=== PATIENT | female | born 1985 | race Asian ===

== ENCOUNTER 2021-01-22 07:46 | Outpatient (CLI) | payer BC ==
[2021-01-22 10:41] LABS: #Basophils 0.1 thou/uL (0.0-0.2); #Eosinphils 0.4 thou/uL (0.0-0.7); #Lymphocytes 2.1 thou/uL (1.20-3.40); #Monocytes 0.4 thou/uL (0.11-0.59); #Neutrophils 7.1 thou/uL (1.40-6.50); %Basophils 0.7 % (0.0-1.0); %Eosinophils 3.6 % (0.0-10.0); %Lymphocytes 20.9 % (21.0-51.0); %Neutrophils 70.7 % (42.0-75.0); Hemoglobin 13.8 g/dL (12.0-16.0); Mean Corpuscular HGB CONC 33.3 g/dL (32.0-36.0); Mean Corpuscular Hemoglobin 29.6 pg (27.0-31.0); Mean Corpuscular Volume 88.8 fL (78.0-98.0); Mean Platelet Volume 9.3 fL (7.4-10.4); Platelet Count 292 thou/uL (130-400); RBC Distribution Width 11.2 % (11.5-14.5); Red Blood Cell (RBC) Count 4.67 mill/uL (4.20-5.40)
[2021-01-22 10:57] LABS: Hemoglobin A1c 5.2 % (4.0-6.0)
[2021-01-22 11:52] LABS: Free T4 (Free Thyroxine) 1.05 ng/dL (0.70-1.48); Thyroid Stimulating Hormone 1.7369 uIU/mL (0.35-4.94)
[2021-01-22 12:19] LABS: ALT (SGPT) 19 U/L (8-55); AST (SGOT) 17 U/L (5-34); Albumin 4.6 g/dL (3.5-5.0); Alkaline Phosphatase 46 U/L (40-110); Anion Gap 12 mmol/L (10-20); BUN (Urea Nitrogen) 16 mg/dL (7.0-18.7); Bilirubin, Total 0.6 mg/dL (0.2-1.2); Calc. Creatinine Clearance 0 mL/min (70-130); Calcium 9.7 mg/dL (7.8-10.44); Carbon Dioxide 26 mmol/L (22-29); Cardiac Risk 2.7 (Less than 4.5); Chloride 104 mmol/L (98-107); Cholesterol 120 mg/dl (< 200 Desired); Globulin 2.8 g/dL (2.4-3.5); Glucose 104 mg/dL (70-105); HDL Cholesterol 44 mg/dL (>60 Neg Risk); LDL Cholesterol, Calculated 60 mg/dL; Potassium 4.1 mmol/L (3.5-5.1); Protein, Total 7.4 g/dL (6.0-8.3); Sodium 138 mmol/L (136-145); Triglycerides 79 mg/dL (Less than 150)
[2021-01-22 12:38] LABS: Bilirubin Negative (Negative); Blood, Urine Negative (Negative); Glucose, Urine (Dipstick) Negative (Negative); Ketone, Urine Negative (Negative); Leukocyte Negative (Negative); Nitrite Negative (Negative); Protein, Urine (Dipstick) Negative (Neg-Trace); Urobilinogen 0.2 mg/dL (Less than 2)
[2021-01-22 13:19] LABS: Clarity Turbid (Clear); Specific Gravity, Urine 1.029 (1.002-1.036)
[2021-01-22 13:26] LABS: RBC/HPF 0-3 HPF (0-3); Squamous Epithelial 0-3 HPF (0-3); WBC/HPF 0-3 HPF (0-3)
[2021-01-24 15:29] LABS: Allergen,Beef IgE Less than 0.10 kU/L (Less than 0.10); Allergen,Chocolate/Cacao IgE Less than 0.10 kU/L (Less than 0.10); Allergen,Corn IgE Less than 0.10 kU/L (Less than 0.10); Allergen,Crab IgE Less than 0.10 kU/L (Less than 0.10); Allergen,Egg white IgE Less than 0.10 kU/L (Less than 0.10); Allergen,Egg yolk IgE Less than 0.10 kU/L (Less than 0.10); Allergen,Milk IgE Less than 0.10 kU/L (Less than 0.10); Allergen,Oat IgE Less than 0.10 kU/L (Less than 0.10); Allergen,Peanut IgE Less than 0.10 kU/L (Less than 0.10); Allergen,Pecan nut IgE Less than 0.10 kU/L (Less than 0.10); Allergen,Pork IgE Less than 0.10 kU/L (Less than 0.10); Allergen,Rice IgE Less than 0.10 kU/L (Less than 0.10); Allergen,Shrimp IgE Less than 0.10 kU/L (Less than 0.10); Allergen,Soybean IgE Less than 0.10 kU/L (Less than 0.10); Allergen,Tomato IgE Less than 0.10 kU/L (Less than 0.10); Allergen,Wheat IgE Less than 0.10 kU/L (Less than 0.10); IgE Total Antibody 40.4 kU/L (0-192.0)
[2021-01-26 14:09] LABS: H. pylori IgA ABS Less than 9.0 units (0.0-8.9); H. pylori IgG ABS 0.46 (0.00-0.79); H. pylori IgM ABS Less than 9.0 units (0.0-8.9)
== END 2021-01-22 07:47 | disposition home or self-care (01) ==
LOC: SCSRAD 07:46
PROVIDERS: ATTEND Family Medicine
DX: Z00.00 Encounter for general adult medical examination without abnormal findings (principal); M54.6 Pain in thoracic spine; M54.5 Low back pain; R10.13 Epigastric pain; M41.9 Scoliosis, unspecified
CPT/HCPCS: 36415; 72040; 72072; 72170; 80053; 80061; 81003; 82785; 83036; 84439; 84443; 85025

== ENCOUNTER 2024-01-06 08:06 | Inpatient (IN) | payer BC ==
[2024-01-06] MEDS ORDERED: Ondansetron PF 4 MG/2 ML Vial IVP PRN (10:41)
[2024-01-06] MEDS ORDERED: Ketorolac Tromethamine 30 MG (1 mL) VIAL IVP PRN (10:49)
[2024-01-06] MEDS ORDERED: Morphine 2 MG/ML VIAL SLOW IVP PRN (10:49)
[2024-01-06] MEDS: Acetaminophen 325 MG TAB PO SCH (11:45)
[2024-01-06] MEDS: Lactated Ringer's 1,000 ML IV SCH (11:48)
[2024-01-06 12:33] VITALS: BMI 23.6
[2024-01-06] MEDS ORDERED: Piperacillin/Tazobactam 3.375 GM in Sodium Chloride 0.9% 100 ML IVPB SCH ×2 (13:15→18:00)
[2024-01-06] MEDS: Piperacillin/Tazobactam 3.375 GM in Sodium Chloride 0.9% 100 ML IVPB SCH (14:40)
[2024-01-07 06:29] LABS: #Basophils 0.05 10x3/uL (0.0-0.2); %Basophils 0.9 % (0.0-1.0); %Eosinophils 4.4 % (0.0-10.0); %Lymphocytes 27.8 % (21.0-51.0); %Monocytes 6.5 % (0.0-10.0); Hematocrit 36.5 % (36.0-47.0); Hemoglobin 12.1 g/dL (12.0-16.0); Mean Corpuscular HGB CONC 33.2 g/dL (32.0-36.0); Mean Corpuscular Hemoglobin 28.2 pg (27.0-31.0); Mean Corpuscular Volume 85.1 fL (78.0-98.0); Mean Platelet Volume 10.4 fL (7.4-10.4); Platelet Count 319 10x3/uL (130-400); RBC Distribution Width 14.2 % (11.5-14.5); Red Blood Cell (RBC) Count 4.29 mill/uL (4.20-5.40)
[2024-01-07 06:40] LABS: ALT (SGPT) 883 U/L (8-55); AST (SGOT) 413 U/L (5-34); Albumin 3.4 g/dL (3.5-5.0); Alkaline Phosphatase 196 U/L (40-110); Anion Gap 11 mmol/L (10-20); BUN (Urea Nitrogen) 8 mg/dL (7.0-18.7); Bilirubin, Total 1.4 mg/dL (0.2-1.2); Calc. Creatinine Clearance 140 mL/min (70-130); Calcium 9.1 mg/dL (7.8-10.44); Carbon Dioxide 27 mmol/L (22-29); Chloride 107 mmol/L (98-107); Estimated GFR 119; Globulin 2.9 g/dL (2.4-3.5); Glucose 95 mg/dL (70-105); Lipase 19 U/L (8-78); Magnesium 2.1 mg/dL (1.6-2.6); Potassium 3.9 mmol/L (3.5-5.1); Protein, Total 6.3 g/dL (6.0-8.3); Sodium 141 mmol/L (136-145)
[2024-01-07] MEDS: Pantoprazole DR 40 MG TAB PO SCH (08:53)
[2024-01-08] MEDS: Lactated Ringer's 1,000 ML IV SCH (01:36)
[2024-01-08 06:23] LABS: #Basophils 0.05 10x3/uL (0.0-0.2); %Basophils 0.8 % (0.0-1.0); %Eosinophils 3.1 % (0.0-10.0); %Lymphocytes 30.3 % (21.0-51.0); %Monocytes 4.5 % (0.0-10.0); Hematocrit 41.2 % (36.0-47.0); Hemoglobin 13.6 g/dL (12.0-16.0); Mean Corpuscular Hemoglobin 27.6 pg (27.0-31.0); Mean Corpuscular Volume 83.7 fL (78.0-98.0); Mean Platelet Volume 10.3 fL (7.4-10.4); Platelet Count 392 10x3/uL (130-400); RBC Distribution Width 14.2 % (11.5-14.5); Red Blood Cell (RBC) Count 4.92 mill/uL (4.20-5.40)
[2024-01-08 06:45] LABS: ALT (SGPT) 641 U/L (8-55); AST (SGOT) 144 U/L (5-34); Alkaline Phosphatase 182 U/L (40-110); Anion Gap 15 mmol/L (10-20); BUN (Urea Nitrogen) 10 mg/dL (7.0-18.7); Bilirubin, Total 1.5 mg/dL (0.2-1.2); Calc. Creatinine Clearance 129 mL/min (70-130); Calcium 9.7 mg/dL (7.8-10.44); Carbon Dioxide 26 mmol/L (22-29); Chloride 104 mmol/L (98-107); Estimated GFR 117; Globulin 3.5 g/dL (2.4-3.5); Glucose 96 mg/dL (70-105); Magnesium 2.1 mg/dL (1.6-2.6); Protein, Total 7.5 g/dL (6.0-8.3); Sodium 141 mmol/L (136-145)
[2024-01-08] MEDS ORDERED: Iopamidol 30 ML ONE (07:03)
[2024-01-08] MEDS ORDERED: EPINEPHrine 1 MG/ML VIAL ONE (07:03)
[2024-01-08] MEDS ORDERED: Glucagon 1 MG/ML KIT ONE (07:03)
[2024-01-08] MEDS ORDERED: Bupivacaine PF 0.5% 30 ML VIAL ONE (07:04)
[2024-01-08] MEDS ORDERED: fentaNYL PF 100 MCG/2 ML SYRINGE ONE ×2 (07:09→08:54)
[2024-01-08] MEDS ORDERED: Rocuronium Bromide 10 MG/ML (10ML VIAL) ONE (07:09)
[2024-01-08] MEDS ORDERED: Ketorolac Tromethamine 30 MG (1 mL) VIAL ONE (07:09)
[2024-01-08] MEDS ORDERED: Midazolam HCl 2 mg/2 ml Vial ONE (07:09)
[2024-01-08] MEDS ORDERED: Lidocaine 1% PF 5 ML VIAL ONE (07:09)
[2024-01-08] MEDS ORDERED: Ondansetron PF 4 MG/2 ML Vial ONE (07:09)
[2024-01-08] MEDS ORDERED: PROPOFOL 20 ML ONE (07:09)
[2024-01-08] MEDS ORDERED: Dexamethasone 20 MG/5 ML VIAL ONE (07:09)
[2024-01-08] MEDS ORDERED: SUGAMMADEX SODIUM 200 MG/2 ML VIAL ONE (08:40)
[2024-01-08] MEDS ORDERED: fentaNYL 50 mcg/mL 1 mL Vial ONE (08:49)
[2024-01-08] MEDS: traMADol HCl 50 MG TAB PO PRN (11:45)
[2024-01-08] MEDS: Morphine 2 MG/ML VIAL SLOW IVP SCH (12:47)
[2024-01-08] MEDS: Acetaminophen 500 MG TAB PO SCH (12:47)
[2024-01-08] MEDS ORDERED: Acetaminophen 325 MG TAB PO SCH (13:00)
[2024-01-08] MEDS: Ibuprofen 600 MG TAB PO PRN (16:02)
[2024-01-08 16:03] VITALS: BP 113/76; TEMP 97.3
== END 2024-01-08 16:52 | disposition home or self-care (01) | DRG 419 ==
LOC: T4-A 09:56
PROVIDERS: ADMIT Family Medicine; ATTEND Internal Medicine
PROC: 0FT44ZZ Resection of Gallbladder, Percutaneous Endoscopic Approach (ICD-10-PCS; principal; 2024-01-08)
PROC: 3E033XZ Introduction of Vasopressor into Peripheral Vein, Percutaneous Approach (ICD-10-PCS; 2024-01-08)
DX: K80.12 Calculus of gallbladder with acute and chronic cholecystitis without obstruction (principal); K21.9 Gastro-esophageal reflux disease without esophagitis; I45.10 Unspecified right bundle-branch block; Z79.899 Other long term (current) drug therapy; Z88.8 Allergy status to other drugs, medicaments and biological substances
CPT/HCPCS: 36415; 47532; 80053; 83690; 83735; 85025; 88304; 93005; 93010; C1889; J0171; J0665; J1100; J1611; J1885; J2250; J2272; J2405; J2543; J2704; J3010; J7120; Q9967